=== PATIENT | male | born 2000 | race Hispanic/Latino ===

== ENCOUNTER 2019-10-07 08:07 | Day surgery (SDC) | payer BC ==
[~2019-10-07] VITALS: Ht 170.2 cm; Wt 108.9 kg
[~2019-10-07 08:07] MED LIST: IRON18TA PO; LEVO200 PO; SERT50TA12 PO
[2019-10-07 09:47] VITALS: BP 125/73
[2019-10-07] MEDS ORDERED: PROPOFOL 10 MG/ML 20ML VIAL IV ONE ×2 (09:48)
[2019-10-07] MEDS ORDERED: SODIUM CHLORIDE 0.9% 1000ML 1,000 ML IV ONE (10:01)
[2019-10-07] MEDS ORDERED: MIDAZOLAM HCL 1 MG/ML 2ML VIAL ONE (10:02)
[2019-10-07 10:12] VITALS: BP 98/46
[2019-10-07 10:17] VITALS: BP 107/51
[2019-10-07 10:22] VITALS: BP 111/47
== END 2019-10-07 10:35 | disposition home or self-care (01) ==
LOC: ENDO 08:07 → DAH 08:07 → ENDO 10:35
PROVIDERS: ATTEND Internal Medicine Gastroenterology
DX: R11.2 Nausea with vomiting, unspecified (principal); C18.7 Malignant neoplasm of sigmoid colon; K62.1 Rectal polyp; K21.9 Gastro-esophageal reflux disease without esophagitis; F32.9 Major depressive disorder, single episode, unspecified; Z90.49 Acquired absence of other specified parts of digestive tract; Z93.2 Ileostomy status; Z86.010 Personal history of colon polyps; Z79.899 Other long term (current) drug therapy; Z98.890 Other specified postprocedural states
CPT/HCPCS: 45331; A4215; A4221; A4222; A4223; A4606; A4620; A4663; J2250; J2704 ×2; J7030

== ENCOUNTER → 2019-10-27 | Outpatient (CLI) | payer BC ==
[~2019-10-27] MED LIST changes: +DIATR MEGLU/DIATRIZOATE SODIUM 30 ML BOTTLE ONE; +IOHEXOL 350 MG/ML 100ML INFUS..BTL IV ONE
== END | disposition home or self-care (01) ==
LOC: DAH 10:10
PROVIDERS: ATTEND Internal Medicine Gastroenterology
DX: C18.7 Malignant neoplasm of sigmoid colon (principal); Z90.49 Acquired absence of other specified parts of digestive tract
CPT/HCPCS: 71270; 74178; Q9963; Q9967